=== PATIENT | male | born 1965 | race Caucasian/White ===

== ENCOUNTER 2024-03-28 18:00 | Outpatient (RCR) | payer OTHER, SELFPAY ==
--- NOTE | 2024-03-08 15:23 | HP.PTEVAL ---
Patient's Visit Information Visit Information Visit Information: NIEVES CAMPOS is a 58 year old M referred to Physical Therapy by Brodie Banks MD with a diagnosis of L RADHAMES 02/16/24. Date of Evaluation: 03/08/24 Physical Therapist: Miguelangel Che, PT, ATC Visit Plan Frequency: 1x/Week Duration: 1 Week Plan: Issue and instruct pt on HEP of L hip and core strengthening next visit Subjective Subjective: DOS: 02/16/24. Pt reports he had a L RADHAMES performed at that time. Pt notes a chronic Hx of L hip pain prior to the surgery. Pt reports he is glad to have had the surgery at this time as his pain is much less now. 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 Pt denies any tingling in his L LE at this time, but notes numbness on the lateral aspect of L thigh. Pt denies sleep difficulty at this time secondary to pain. Pt reports he has stairs to get into his basement which he is able to negotiate reciprocally. 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 0/10 pain while sitting here in the clinic at rest, 1/10 pain at worst (when he is on his feet for a prolonged period of time.) Pain L RADHAMES: Pain Intensity (Out of 10): 0 Pain Intensity Range: 1 Objective Objective: Neuro: B LE sensation is WNL to light touch. Observation: Incision is healed, no signs of infection ROM: R hip flex= 90, ext= 20 degrees; L hip flex= 75, ext= 20 degrees MMT: R hip flex= 31, ext= 38 #F; L hip flex= 35, ext= 50 TU sec Goals Goal 1:: I with HEP of L hip and core strengthening in 1 PT visit Goal Time Frame: 1 Week Rehabilitation Potential Physical Therapy Diagnosis: Pt had a L TKA 02/16/24 Rehabilitation Potential: Excellent Anticipated Interventions Patient/Client Instruction: Educate patient on: Condition and Plan of Care For the Purpose of:: To improve self management Therapeutic Exercise to Include: Strength training, Balance training and Dynamic Lumbar Stabilization For the Purpose of:: To improve muscle performance and motor function and To increase tolerance to activity/condition/position Text: Thank you for the opportunity to evaluate your patient. For Medicare and Medicare HMO plans, please review the plan of care and approve it. It will need to be FAXED BACK to us at [phone] for Medicare purposes. For Medicare only, by signing this I certify the plan of care. Please let me know if there are questions or concerns regarding this plan of care. Physician Signature: Date:
--- NOTE | 2024-03-28 18:41 | HP.PTDCSUM ---
Discharge Summary D/C summary: It has been my pleasure to treat NIEVES CAMPOS referred by Brodie Banks MD, with the diagnosis of L RADHAMES 02/16/24 for a total of 2 visit(s). Discharge Date: 03/28/24 Please see the following information for a summary of their discharge status. Subjective Subjective: Wanted an evening appt and took awhile. 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 Sleeps OK typically. Work is normal. Home activities have been normal and would square dance if he needed to. Pain L RADHAMES: Pain Intensity (Out of 10): 0 Objective Objective/Function: slight L lack extension in gait at end of stance but funcitonal and in good shape. Steps reciprocal without rail Goals Goal 1:: I with HEP of L hip and core strengthening in 1 PT visit Goal Progress: Goal Met Plan Plan: d/c to HEP D/C Information d/c sentence: If there are questions or concerns regarding this patient's physical therapy, please feel free to call me at [phone]. Thank you for the referral of this patient. Sincerely, Howard Garrett, DPT, OCS, CSCS
== END 2024-03-28 19:00 | disposition home or self-care (01) ==
LOC: PT 18:00
PROVIDERS: PCP Nurse Practitioner Family; Referring Provider Orthopaedic Surgery; Visit Provider Orthopaedic Surgery
DX: Z96.642 Presence of left artificial hip joint (principal)
CPT/HCPCS: 97110; 97161